=== PATIENT | male | born 1990 | race Two or more races ===

== ENCOUNTER 2019-06-16 00:49 | Emergency (ER) | payer SELFPAY ==
[~2019-06-16] VITALS: Ht 170.2 cm; Wt 95.3 kg
[2019-06-16 05:13] VITALS: BP 140/97
[2019-06-16] MEDS ORDERED: IBUPROFEN 800 MG TAB PO ONE (05:30)
== END 2019-06-16 05:55 | disposition home or self-care (01) ==
LOC: ER 00:55
DX: M54.5 Low back pain (principal); M25.521 Pain in right elbow; E11.9 Type 2 diabetes mellitus without complications; F12.10 Cannabis abuse, uncomplicated; W19.XXXA Unspecified fall, initial encounter; Y93.89 Activity, other specified; Y99.0 Civilian activity done for income or pay; Y92.69 Other specified industrial and construction area as the place of occurrence of the external cause
CPT/HCPCS: 72100; 73080